=== PATIENT | female | born 1985 | race Caucasian/White ===

== ENCOUNTER 2021-12-15 20:36 | Emergency (ER) | payer OTHER ==
[~2021-12-15] VITALS: Ht 165.1 cm; Wt 79.4 kg
[2021-12-15 21:13] VITALS: BP 110/73
[2021-12-15] MEDS ORDERED: methylPREDNISolone SOD SUCC 125 MG/2 ML VL IM ONE (21:15)
[2021-12-15] MEDS ORDERED: KETOROLAC TROMETH 60MG/2ML VIAL IM ONE (21:15)
[2021-12-15] MEDS ORDERED: CYCL-837 PO (22:06)
[2021-12-15] MEDS ORDERED: IBUP800T26 PO (22:06)
== END 2021-12-15 22:42 | disposition home or self-care (01) ==
LOC: EDBD 20:36 → ER 20:36
DX: S33.5XXA Sprain of ligaments of lumbar spine, initial encounter (principal); M54.16 Radiculopathy, lumbar region; M79.10 Myalgia, unspecified site; X50.1XXA Overexertion from prolonged static or awkward postures, initial encounter; Y93.89 Activity, other specified; Y92.89 Other specified places as the place of occurrence of the external cause; Y99.8 Other external cause status
CPT/HCPCS: 96372; 99284; J1885; J2930